=== PATIENT | male | born 1950 | race Caucasian/White ===

== ENCOUNTER → 2016-09-30 | Outpatient (CLI) | payer OTHER ==
[~2016-09-30] VITALS: Ht 172.7 cm; Wt 136.1 kg
[~2016-09-30] MED LIST: ADVAIR 250-501 EACH INH; ALBUTEROL2.5 MG/31 INH; ASPIR 8181 MG PO; HYDROCODONE-AP1 EAC6 PO; LOSARTAN-HCTZ1 EAC1 PO; NORVASC5 MG PO; SINGULAIR 10 MG10 M1 PO; VENTOLIN HFA 1818 GM INH; VIAGRA25 MG PO; VITAMIN D-32000 UNIT PO
--- NOTE | ~2016-09-30 | S ---
[facility] [place] [address] SURGICAL PATH RPT PROCEDURE Name: ZEB FONSECA Room #: REG [facility]#: [id number] Admission: 09/30/16 Date of : 54 Discharge: Report #: [id number] Path Case #: [id number] PATHOLOGY REPORT COLLECTION DATE: 09/30/2016 RECEIVED DATE: 09/30/2016 SUBMITTING PHYS: Dr. Son Grant OTHER PHYS: Dr. Marco A Hwang SPECIMEN(S) RECEIVED: A.Ascending colon polyp B.Descending colon polyp x2 * * * * * * * * * * * * FINAL DIAGNOSIS: A. Polyp, at ascending colon, endoscopic biopsy: - Tubular adenoma. - Negative for high-grade dysplasia. B. Polyp, at descending colon, endoscopic biopsy: - Two fragments showing tubular adenoma without high-grade dysplasia. - One fragment showing hyperplastic polyp without dysplasia. - One fragment with lymphoid aggregate. (IUV:rlm; 10/03/2016) PATHOLOGIST: Ciarra Shaw M.D. REPORT ELECTRONICALLY SIGNED BY: Ciarra Shaw M.D. DATE/TIME: 10/03/2016 16:37 * * * * * * * * * * * * GROSS PATHOLOGY: A. Received in formalin labeled "Zeb Fonseca, polyp at ascending colon," are three segments of scott soft tissue measuring 0.5 x 0.3 x 0.2 cm in aggregate dimensions and ranging from 0.2 to 0.3 cm in maximum dimension. The specimen is submitted entirely in cassette A1. B. Received in formalin labeled "Zeb Fonseca, polyp at descending colon," are four segments of scott soft tissue measuring 1.2 x 0.4 x 0.3 cm in aggregate dimensions and ranging from 0.2 to 0.5 cm in maximum dimension. The specimen is submitted entirely in cassette B1. (TSD; 09/30/2016) CLINICAL HISTORY: Hx of colon polyps INITIAL CPT CODE(S): A; [address] [address] SURGICAL PATH RPT PROCEDURE Name: ZEB FONSECA Room #: REG [facility].#: [id number] Admission: 09/30/16 Date of : 54 Discharge: Report #: [id number] Path Case #: [id number]; [id number] Professional services performed by [facility] at [address], [place] [address] Technical services performed by [facility] at [address] [place] [address], [address], [place] [address]. [facility] [address] [address] PHONE: [phone] DIRECTOR: Wyatt Bowden M.D. * * * END OF REPORT * * *
--- NOTE | ~2016-09-30 | P ---
[facility] [place] [address] PROCEDURE REPORT Name: RUBY FONSECA Room #: REG [facility]#: [id number] Admission: 09/30/16 Attend Phys: Son Morrell Discharge: Date of : 54 Report #: [id number] THIS REPORT FOR: //name// CC: Son Hwang MD DATE OF SERVICE: 09/30/2016 PROCEDURE PERFORMED: Colonoscopy with polypectomies. HISTORY OF PRESENT ILLNESS: The patient is a 66-year-old male with a history of polyps in 07/2011. He is here for a 5-year followup. He denies any symptoms, no family history of colon cancer. DESCRIPTION OF PROCEDURE: The risks and benefits of the procedure were explained to the patient, those risks including but not limited to bleeding, perforation, the risk of sedation. He understood these risks and gave informed consent. Sedation was given using propofol per anesthesia. Next, a digital rectal exam was initially performed, which was normal. Next, using a standard Fujinon colonoscope, the scope was placed into the patient's anus and advanced under direct vision to the cecum. The overall prep was good. The cecum and ileocecal valve were normal in appearance. In the ascending colon, a 4-mm sessile polyp was removed with cold forceps, otherwise normal. The transverse colon was normal. In the descending colon, there were 2 polyps, the smaller was 4 mm sessile and removed by cold forceps, the larger was 6 mm and removed by snare cautery, otherwise normal descending colon. Sigmoid colon was normal. The rectal mucosa was normal. On retroflexion, small nonbleeding internal hemorrhoids were noted, otherwise normal colonoscopy. The scope was then withdrawn and the procedure terminated. The patient tolerated the procedure well. IMPRESSION: 1. Three small colonic polyps. 2. Small internal hemorrhoids. 3. Otherwise, normal colonoscopy. RECOMMENDATIONS: 1. Await biopsy results. 2. Repeat colonoscopy in [address] [address] PROCEDURE REPORT Name: RUBY FONSECA [facility] [id number] Admission: 09/30/16 Attend Phys: Son Morrell Discharge: Date of : 54 Report #: [id number] Thank you for allowing me to participate in his care. <ELECTRONICALLY SIGNED> By: Son Grant MD 10/05/16 [id number] Son Grant MD /nt
== END | disposition home or self-care (01) ==
LOC: GI 06:53
DX: Z09 Encounter for follow-up examination after completed treatment for conditions other than malignant neoplasm (principal); Z87.19 Personal history of other diseases of the digestive system; D12.2 Benign neoplasm of ascending colon; D12.4 Benign neoplasm of descending colon; K64.8 Other hemorrhoids; F17.210 Nicotine dependence, cigarettes, uncomplicated; I10 Essential (primary) hypertension; J45.909 Unspecified asthma, uncomplicated
CPT/HCPCS: 62110